=== PATIENT | female | born 1950 | race Caucasian/White ===

== ENCOUNTER 2021-01-26 16:27 | Outpatient (CLI) | payer MEDICARE, SELFPAY ==
--- NOTE | ~2021-01-26 | US_ITS ---
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 Th ere is no intraluminal thrombus identified at the common femoral, femoral, popliteal or posterior tib ial veins. There is compression of these veins. The peroneal veins are not visualized. IMPRESSION: Peroneal veins not visualized; otherwise no evidence of deep venous thrombosis Reviewed, dictated and finalized at [facility]. Reviewed, dictated and finalized at [facility].
[2021-01-26 18:29] LABS: D Dimer 0.85 ug/mL (<0.48)
== END 2021-01-26 16:28 | disposition home or self-care (01) ==
PROVIDERS: PCP Family Medicine Sports Medicine; Visit Provider Family Medicine Sports Medicine
DX: R22.42 Localized swelling, mass and lump, left lower limb (principal)
CPT/HCPCS: 36415; 85380; 93971

== ENCOUNTER 2022-11-08 17:41 | Emergency (ER) | payer MEDICARE, SELFPAY ==
--- NOTE | ~2022-11-08 | XR_ITS ---
EXAMINATION: XR chest 2V 11/08/2022 18:13 INDICATION: Chest pain and shortness of breath PROCEDURE: 2 view chest COMPARISON: No prior studies for comparison. FINDINGS: The lungs are clear. The cardiomediastinal silhouette is within normal limits. There are no pleural effusions. There is no pneumothorax suspected. There is diffuse idiopathic skeletal hyp erostosis (DISH) of the thoracic spine. There are cholecystectomy clips. IMPRESSION: 1: NO ACUTE CARDIOPULMONARY DISEASE. Reviewed, dictated and finalized at location [facility]. [employer] AND CLAIMS AIDE
--- NOTE | 2022-11-08 17:42 | ECG_ITS ---
Measurements Intervals [place] Rate: 68 P: 46 NM: 133 QRS: 3 QRSD: 77 T: 49 QT: 366 QTc: 392 Interpretive Statements SINUS RHYTHM DELAYED PRECORDIAL R/S TRANSITION BORDERLINE ECG NO PREVIOUS ECG AVAILABLE FOR COMPARISON Electronically Signed On 11-08-2022 20:23:48 [employer] by Caleb Schroeder D.O.
[2022-11-08 17:43] VITALS: BP 151/87; PULSE 71; RESP 20; TEMP 36.4; O2SAT 100
[2022-11-08 18:00] LABS: Basophils Absolute Auto 0.1 K/mm3 (0.0-0.1); Basophils Percent Auto 0.8 % (0.2-1.2); Eosinophils Absolute Auto 0.2 K/mm3 (0-0.3); Eosinophils Percent Auto 3.4 % (0-4.4); Hematocrit 40.4 % (37.0-47.0); Hemoglobin 13.1 g/dL (12.0-15.0); Immature Granulocyte Absolute 0.01 K/mm3 (0.00-0.031); Immature Granulocyte Percent A 0.2 % (0-0.5); Lymphocytes Percent Auto 33.8 % (18.3-44.2); Mean Corpuscular HGB Conc 32.4 g/dl (32-36); Mean Corpuscular Hemoglobin 29.8 pg (26-34); Mean Corpuscular Volume 91.8 fl (80-100); Mean Platelet Volume 9.3 fl (7.4-10.4); Monocytes Absolute Auto 0.4 K/mm3 (0.1-0.6); Monocytes Percent Auto 5.9 % (2.6-8.5); Neutrophils Absolute Auto 3.3 K/mm3 (1.3-6.7); Neutrophils Percent Auto 55.9 % (45.5-73.1); Platelet Count Result 224 k/mm3 (150-375); Red Cell Distribution Width 13.7 % (11.5-14.5); White Blood Count 5.9 K/mm3 (4.5-10.0)
[2022-11-08 18:12] LABS: Alanine Aminotransferase 17 U/L (6-35); Albumin Level 4.2 g/dL (3.5-5.1); Alkaline Phosphatase 74 U/L (38-126); Anion Gap 5 mmol/L (8-16); Aspartate Amino Transferase 22 U/L (14-36); Bilirubin,Total 0.5 mg/dL (0.2-1.3); Blood Urea Nitrogen 17 mg/dL (7-17); Calcium 8.2 mg/dL (8.4-10.2); Carbon Dioxide 26 mmol/L (22-30); Chloride 103 mmol/L (98-107); Estimated CRCL calculation 38 ml/min; Estimated Glomerular Filt Rate 44; Glucose 108 mg/dL (65-110); Lipase 99 U/L (23-300); Potassium 4.2 mmol/L (3.4-5.0); Sodium 134 mmol/L (137-145)
[2022-11-08 18:21] LABS: Troponin I < 0.012 ng/mL (0.000-0.034)
[2022-11-08 18:40] LABS: Partial Thromboplastin Time 26.5 SECONDS (22.3-36.8)
[2022-11-08 18:55] LABS: Prothrombin Time 12.9 Seconds (11.1-14.7)
[2022-11-08] MEDS: ASPIRIN 81 MG CHEWABLE TABLET 324 MG PO (20:12)
--- NOTE | 2022-11-08 21:23 | ED.CHESTPAIN ---
HPI - Chest Pain General Chief Complaint: Chest Pain Stated Complaint: Chest pain Time Seen by Provider: 11/08/22 20:02 History of Present Illness HPI narrative: Patient is a 72-year-old female with a history of hyperlipidemia, GERD presenting with chest pain. Patient states that for the last 4 days she has had chest pain in the center of her chest. She is unable to qualify the pain. She denies palpitations, lightheadedness, shortness of breath, leg swelling, abdominal pain, vomiting, diarrhea. Patient states that she has been under a lot of stress lately with one of her children and she thinks that this is causing the pain. She has not taken anything for pain control. Related Data Allergies Allergy/AdvReac Type Severity Reaction Status Date / Time Sulfa (Sulfonamide Allergy Hives Verified 11/08/22 21:06 Antibiotics) Review of Systems Review of Systems: All systems reviewed & are unremarkable except as noted in HPI and below Exam Narrative: GENERAL: Well-appearing, well-nourished, and in no acute distress. HEAD: Normocephalic, atraumatic. EYES: PERRLA and EOMI. ENT: Nares clear, no rhinorrhea or epistaxis. Mucous membranes moist. NECK: Supple. CHEST: Clear to auscultation. No respiratory distress. HEART: Regular rate and rhythm. No murmur heard. Normal peripheral pulses. ABDOMEN: Soft, nontender, nondistended, normal active bowel sounds. EXTREMITIES: Normal range of motion. No edema. SKIN: Warm, dry, no rash. NEURO: No focal deficits. Alert and oriented x3. PSYCH: Normal mood and affect. Course Vital Signs Vital signs: Vital Signs Temperature 97.6 F 11/08/22 17:43 Pulse Rate 71 11/08/22 17:43 Respiratory Rate 20 11/08/22 17:43 Blood Pressure 151/87 H 11/08/22 17:43 Pulse Oximetry 100 11/08/22 17:43 Oxygen Delivery Room Air 11/08/22 17:43 Temperature 97.6 F 11/08/22 17:43 Pulse Rate 86 11/08/22 22:17 Respiratory Rate 16 11/08/22 22:17 Blood Pressure 138/84 11/08/22 22:17 Pulse Oximetry 97 11/08/22 22:17 Oxygen Delivery Room Air 01/26/23 17:43 MDM - Chest Pain MDM Narrative Medical decision making narrative: Patient is a 72-year-old female presenting with several days of chest pain. Patient is a bit hypertensive, otherwise vitals are within normal limits. Patient is well-appearing and in no acute distress. Exam is unremarkable. EKG per my interpretation shows normal sinus rhythm, normal axis and intervals, no acute ischemic changes. Blood work with creatinine of 1.20. Troponin is undetectable. Chest x-ray has no acute abnormalities. Second troponin is still within normal limits. I feel the patient is safe for outpatient follow-up. Patient states that she will call her PCP first thing in the morning. Strict return precautions were given. Patient voiced understanding and is agreeable with plan. Discharged in stable condition. Differential Diagnosis Differential diagnosis: Likely stable angina, atypical chest pain, st elevation myocardial infarction, costochondritis and chest pain Lab Data 11/08/22 17:53 11/08/22 17:53 Labs: Lab Results 11/08/22 11/08/22 11/08/22 Range/Units 17:53 17:53 17:53 WBC 5.9 (4.5-10.0) K/mm3 RBC 4.40 (4.2-5.4) M/mm3 Hgb 13.1 (12.0-15.0) g/dL Hct 40.4 (37.0-47.0) % MCV 91.8 (80-100) fl MCH 29.8 (26-34) pg MCHC 32.4 (32-36) g/dl RDW 13.7 (11.5-14.5) % Plt Count 224 (150-375) k/mm3 MPV 9.3 (7.4-10.4) fl Immature Gran % (Auto) 0.2 (0-0.5) % Neut % (Auto) 55.9 (45.5-73.1) % Lymph % (Auto) 33.8 (18.3-44.2) % [place] % (Auto) 5.9 (2.6-8.5) % Eos % (Auto) 3.4 (0-4.4) % Baso % (Auto) 0.8 (0.2-1.2) % Lymph # (Auto) 2.00 (0.9-3.2) K/mm3 [place] # (Auto) 0.4 (0.1-0.6) K/mm3 Eos # (Auto) 0.2 (0-0.3) K/mm3 Baso # (Auto) 0.1 (0.0-0.1) K/mm3 Abs Immat Gran (auto) 0.01 (0.00-0.031) K/mm3 Absolute Neuts (aut
[2022-11-08] MEDS: KETOROLAC 30 MG/ML VIAL (*BKC) 15 MG IM (21:31)
[2022-11-08 21:46] LABS: Troponin I 0.012 ng/mL (0.000-0.034)
[2022-11-08 22:17] VITALS: BP 138/84; PULSE 86; RESP 16; O2SAT 97
== END 2022-11-08 22:18 | disposition home or self-care (01) ==
PROVIDERS: Emergency Medicine; Emergency Provider Emergency Medicine; PCP Family Medicine Sports Medicine
DX: R07.89 Other chest pain (principal); E78.5 Hyperlipidemia, unspecified; K21.9 Gastro-esophageal reflux disease without esophagitis; R94.31 Abnormal electrocardiogram [ECG] [EKG]
CPT/HCPCS: 36415; 71046; 80053; 83690; 84484; 85025; 85610; 85730; 93005; 96372; 99284; A9270; J1885

== ENCOUNTER 2024-08-20 17:20 | Observation (INO) | payer MEDICARE, SELFPAY ==
[2024-08-20] VITALS (9 sets, daily range): BP systolic 133–179; BP diastolic 45–114; PULSE 58–71; RESP 18–20; TEMP 36.5–37.2; O2SAT 98–100
--- NOTE | ~2024-08-20 | CT_ITS ---
CLINICAL INDICATION: Urinary retention COMPARISON: None. TECHNIQUE: Multiple contiguous axial images of the abdomen and pelvis were performed without the admi nistration of intravenous contrast The dose-length product (DLP) was 648.52 mGy-cm. Automated exposure control and iterative reconstruction technique were employed. FINDINGS/OBSERVATIONS: Visualized lower thorax: The bilateral lung bases are clear. The heart is enlarged, with a small pericardial effusion. Small hiatal hernia is present. Liver: The liver demonstrates homogeneous attenuation and is not enlarged measuring 17 cm in longitudinal di mension. Gallbladder and biliary system: The gallbladder is surgically absent. Pancreas: Limited evaluation of the pancreas secondary to the lack of intravenous contrast. Spleen: The spleen demonstrates homogeneous attenuation and is not enlarged measuring 7 cm in longitudinal di mension. Kidneys: Only a left kidney is visualized. This is likely congenital as no clips are present within the right retroperitoneum to suggest prior n ephrectomy Moderate left-sided hydroureteronephrosis, likely secondary to bladder distention. Adrenal glands: Unremarkable. Gastrointestinal tract: Colonic diverticulosis without surrounding inflammatory change. Fecal stasis within the colon. Appendix: The appendix is of normal caliber (axial series, images 90 through 95). Vasculature: Calcified atherosclerotic disease without aneurysmal dilatation or significant stenosis. Lymph nodes: No pathologically enlarged or morphologically suspicious lymph nodes within the retroperitoneum or at the root of the mesentery. Pelvic structures: Visualization of the deep pelvis is limited secondary to metallic streak artifact from bilateral hip prostheses and hardware. The bladder is significantly distended measuring 12 x 10 x 16 cm (anterior to posterior x medial to l ateral x cranial to caudal dimension) containing nearly 2 L of urine. Body wall and musculoskeletal: Small fat-containing umbilical hernia. No significant degenerative disease within the lower thoracic or lumbosacral spine. IMPRESSION: Significant bladder distention with hydroureteronephrosis in a solitary left kidney. Evaluation of th e deep pelvis is limited secondary to metallic streak artifact from the patient's hip prostheses and hardware. Reviewed, dictated and finalized at location A. ATING ROOM ASSISTANT IMPRESSION: Significant bladder distention with hydroureteronephrosis in a solitary left ki dney. Evaluation of the deep pelvis is limited secondary to metallic streak art ifact from the patient's hip prostheses and hardware.
--- NOTE | 2024-08-20 19:19 | ED.FEMALEGU ---
HPI - Female Genitourinary General Chief complaint: Urogenital-Female Stated complaint: URINARY RETENTION/UTI Time Seen by Provider: 08/20/24 19:03 History of Present Illness HPI Narrative: 74-year-old female presenting to the emergency department for urinary retention. Patient's thinks she has UTI. She has a history of urinary tract infections and kidney infections in the past. She states that she has had 1 day of difficulty urinating and 3 days of constipation. Patient states that she went to her primary care provider's office today with contents urinary retention and they did a bladder scan and had 1000 mL. They did a straight catheterization and sent her into the emergency department for evaluation. Patient states she has had some suprapubic pain and when she tries to go to the bathroom she has to push on her lower abdomen in the suprapubic region to urinate. Never had anything like this happen in the past. She states she only has 1 kidney since . She denies any upper abdominal pain, nausea, vomiting, weakness, back pain, fever, chills. She was otherwise in her normal state of health. Denies any history kidney stones or bladder stones. No burning with urination, states that she cannot defecate and feels constipated as well. Related Data Home Medications Medication Instructions Recorded Confirmed cholestyramine (with sugar) 4 gram ea PO 07/09/23 08/19/23 oral powder pantoprazole 40 mg tablet,delayed 40 mg PO QAM 07/09/23 08/19/23 release pravastatin 40 mg tablet 40 mg PO DAILY 07/09/23 08/19/23 Allergies Allergy/AdvReac Type Severity Reaction Status Date / Time Sulfa (Sulfonamide Allergy Hives Verified 08/19/23 08:54 Antibiotics) shellfish Allergy Mild Rash Uncoded 08/19/23 08:54 Review of Systems Review of Systems: As reviewed above in HPI [facility] Past Medical History Medical History Blood clot in leg Broken femur Broken jaw Diarrhea Diverticulosis GERD (gastroesophageal reflux disease) Gout Hyperlipemia Kidney disease Lumbar degenerative disc disease Surgical History Surgical History History of cholecystectomy History of hip replacement History of nephrectomy Hx of tonsillectomy Knee joint replacement by other means Social History Social History Smoking status: Smoker, status unknown Exam Narrative: GENERAL: [Well-appearing, well-nourished, and in no acute distress.] HEAD: [Normocephalic, atraumatic.] EYES: [PERRLA and EOMI.] ENT: Nares clear, no rhinorrhea or epistaxis. Mucous membranes moist. NECK: Supple. CHEST: [Clear to auscultation. No respiratory distress.] HEART: [Regular rate and rhythm]. No murmur heard. [Normal peripheral pulses.] ABDOMEN: [Soft, nondistended], [nontender], [No rigidity or guarding] EXTREMITIES: Normal range of motion. [No edema] SKIN: Warm, dry, no rash. NEURO: [No focal deficits]. Alert and oriented [x3.] full EHL and FHL strength bilaterally, able to lift both legs off the ground, sensation intact bilaterally, no saddle anesthesia. full range of motion of all extremities PSYCH: [Normal mood and affect.] Course Vital Signs Vital signs: Vital Signs Temperature 36.5 C 08/20/24 17:21 Pulse Rate 60 08/20/24 17:21 Respiratory Rate 18 08/20/24 17:21 Blood Pressure 142/72 H 08/20/24 17:21 Pulse Oximetry 100 08/20/24 17:21 Temperature 36.7 C 08/20/24 20:40 Pulse Rate 64 08/20/24 20:40 Respiratory Rate 20 08/20/24 20:40 Blood Pressure 141/64 H 08/20/24 20:21 Pulse Oximetry 99 08/20/24 20:40 MDM - Female Genitourinary MDM Narrative Medical decision making narrative: 74-year-old female presenting for urinary tension for 1 day. She has also been constipated for 3 days. She states that she has to apply suprapubic pressure to urinate. Has never happened before but states she frequently gets urinary tract infections and kidney infections. No history of kidney stones or bladder stones. She was otherwise in her normal state of health. Denies any fever, chills, weakness. She has an unremarkable neurological examination with full strength and sensation throughout both arms and legs. EHL and FHL with full strength, sensation intact with any saddle anesthesias, no midline back pain. No overlying rashes, she is afebrile here with normal reassuring vital signs. abdomen is soft nontender nondistended. Given patient's urinary complaints a bladder scan was obtained and found to be 500 cc even after the straight catheterization done at her clinic this morning. We will obtain a urinalysis and a CT scan without contrast to assess for any kind of urinary pathology such as a kidney stone, bladder stone or any prolapse organs potentially. CBC, BMP also ordered as well as urinalysis to assess for infection. Patient CT scan was independent reviewed by myself and I do appreciate very distended bladder with hydroureteronephrosis as solitary kidney. She has a very minor leukocytosis 11.2, no anemia. Straight catheterization with urinalysis shows a urinary tract infection. Patient felt improved after release of significant amounts of urine in the catheter collection bag. She was on Rocephin for urinary tract infection and will require admission to the hospital based on her postobstructive acute kidney injury on her CBC and BMP. Concomitant urinary tract infection also needs IV antibiotics at this time. I discussed the case with the hospitalist Dr. Henderson over the phone who accepted the patient to a medical bed at this time. Medical Records Attestation: I reviewed the patient's medical records. Lab Data Attestation: I reviewed the patient's lab results. 08/20/24 20:24 08/20/24 20:24 Labs: Lab Results 08/20/24 08/20/24 Range/Units 20:24 20:48 WBC 11.2 H (4.5-10.0) K/mm3 RBC 3.89 L (4.2-5.4) M/mm3 Hgb 12.0 (12.0-15.0) g/dL Hct 36.4 L (37.0-47.0) % MCV 93.6 (80-100) fl MCH 30.8 (26-34) pg MCHC 33.0 (32-36) g/dl RDW 14.0 (11.5-14.5) % Plt Count 200 (150-375) k/mm3 MPV 9.3 (7.4-10.4) fl Immature Gran % (Auto) 0.4 (0-0.5) % Neut % (Auto) 83.2 H (45.5-73.1) % Lymph % (Auto) 9.8 L (18.3-44.2) % [place] % (Auto) 6.1 (2.6-8.5) % Eos % (Auto) 0.3 (0-4.4) % Baso % (Auto) 0.2 (0.2-1.2) % Lymph # (Auto) 1.10 (0.9-3.2) K/mm3 [place] # (Auto) 0.7 H (0.1-0.6) K/mm3 Eos # (Auto) 0.0 (0-0.3) K/mm3 Baso # (Auto) 0.0 (0.0-0.1) K/mm3 Abs Immat Gran (auto) 0.04 H (0.00-0.031) K/mm3 Absolute Neuts (auto) 9.4 H (1.3-6.7) K/mm3 Absolute Nucleated RBC 0.000 (0.0-0.012) K/mm3 Nucleated RBC % 0.0 (0.0-0.2) % Sodium 139 (137-145) mmol/L Potassium 4.3 (3.4-5.0) mmol/L Chloride 104 (98-107) mmol/L Carbon Dioxide 30 (22-30) mmol/L Anion Gap 5 (4-12) mmol/L BUN 19 H (7-17) mg/dL Creatinine 1.40 H (0.7-1.0) mg/dL Estim Creat Clear Calc Not Reportable Estimated GFR 37 L (59 - ) Glucose 111 H (65-110) mg/dL Calcium 8.9 (8.4-10.2) mg/dL Urine Color Yellow (Yellow) Urine Appearance Cloudy H (Clear) Urine pH 7.5 (5.0-9.0) Ur Specific [place] 1.010 (1.001-1.035) Urine Protein Negative (Negative) mg/dL Urine Glucose (UA) Negative (Negative) mg/dL Urine Ketones Negative (Negative) mg/dL Ur Blood (Man) 2+ H (Negative) Urine Nitrate Positive H (Negative) Urine Bilirubin Negative (Negative) Urine Urobilinogen 1.0 (<2.0) mg/dL Leukocyte Esterase Rfl 2+ H (Negative) LUMA/UL Urine RBC 0-2 (0-2) /hpf Urine WBC 51-100 H (0-3) /hpf Ur Squamous Epith Cells None seen (Few) /hpf Urine Bacteria 4+ /hpf Urine Casts 3-5 Imaging Data Attestation: I personally reviewed and interpreted this imaging study as follows: Radiologist's impression: Impressions Abdomen/Pelvis CT 08/20/24 19:58 IMPRESSION: Significant bladder distention with hydroureteronephrosis in a solitary left kidney. Evaluation of the deep pelvis is limited secondary to metallic streak artifact from the patient's hip prostheses and hardware. Discharge Plan Discharge Clinical Impression: Urinary tract infection, Obstructive uropathy, Acute urinary retention Patient Disposition: Still a Patient Condition: Stable Prescriptions: No Action cholestyramine (with sugar) 4 gram powder PO pravastatin 40 mg tablet 40 mg PO DAILY pantoprazole 40 mg tablet,delayed release (DR/EC) 40 mg PO QAM Follow-up/Referrals: Alejandra,Eliel Mancini MD [Non-Staff] - Time of Disposition: 21:51
[2024-08-20 20:30] LABS: Basophils Percent Auto 0.2 % (0.2-1.2); Eosinophils Percent Auto 0.3 % (0-4.4); Hematocrit 36.4 % (37.0-47.0); Immature Granulocyte Absolute 0.04 K/mm3 (0.00-0.031); Immature Granulocyte Percent A 0.4 % (0-0.5); Lymphocytes Percent Auto 9.8 % (18.3-44.2); Mean Corpuscular Hemoglobin 30.8 pg (26-34); Mean Corpuscular Volume 93.6 fl (80-100); Mean Platelet Volume 9.3 fl (7.4-10.4); Monocytes Absolute Auto 0.7 K/mm3 (0.1-0.6); Monocytes Percent Auto 6.1 % (2.6-8.5); Neutrophils Absolute Auto 9.4 K/mm3 (1.3-6.7); Neutrophils Percent Auto 83.2 % (45.5-73.1); Platelet Count Result 200 k/mm3 (150-375); Red Blood Count 3.89 M/mm3 (4.2-5.4); White Blood Count 11.2 K/mm3 (4.5-10.0)
[2024-08-20 20:39] LABS: Anion Gap 5 mmol/L (4-12); Blood Urea Nitrogen 19 mg/dL (7-17); Calcium 8.9 mg/dL (8.4-10.2); Carbon Dioxide 30 mmol/L (22-30); Chloride 104 mmol/L (98-107); Estimated Glomerular Filt Rate 37; Glucose 111 mg/dL (65-110); Potassium 4.3 mmol/L (3.4-5.0); Sodium 139 mmol/L (137-145)
[2024-08-20 21:33] LABS: Add Urine Microscopic? YES; Appearance Urine Cloudy (Clear); Bacteria Urine 4+ /hpf; Bilirubin Urine Negative (Negative); Blood Urine 2+ (Negative); Color Urine Yellow (Yellow); Glucose Urine UA Negative (Negative); Ketones Urine Negative (Negative); Leukocyte Esterase Ur 2+ LEU/UL (Negative); Nitrate Urine Positive (Negative); Protein Urine Negative (Negative); RBC Urine 0-2 /hpf (0-2); Squamous Epithelial Cell Urine None Seen /hpf (Few); WBC Urine 51-100 /hpf (0-3); pH Urine 7.5 (5.0-9.0)
[2024-08-20] MEDS: cefTRIAXone 2 GM/NS 100 ML 2 GM/100 ML BAG IVPB (22:09)
--- NOTE | 2024-08-20 23:40 | ADMGEN ---
This patient, Megan Sharma, was admitted to [facility] Surg Room 326-01. Patient/family oriented to hospital policies and general routines including ID bracelet, bed and alarms, visiting hours, pain management, procedures, bathroom and other care routines, personal items, smoking policy, room service/diet, and visiting hours. Information on how to activate the Rapid Response Team has been discussed. Patient/Family are encouraged to report perceived risks to care and to ask questions if they do not understand what they are told or what they should do.
[2024-08-21] VITALS (7 sets, daily range): BP systolic 98–140; BP diastolic 51–97; PULSE 59–76; RESP 16–20; TEMP 36.3–37.7; O2SAT 91–100; BMI 35.0
[2024-08-21 08:54] LABS: Basophils Percent Auto 0.2 % (0.2-1.2); Eosinophils Percent Auto 0.3 % (0-4.4); Hematocrit 33.1 % (37.0-47.0); Hemoglobin 10.8 g/dL (12.0-15.0); Immature Granulocyte Absolute 0.04 K/mm3 (0.00-0.031); Immature Granulocyte Percent A 0.3 % (0-0.5); Lymphocytes Absolute Auto 1.59 K/mm3 (0.9-3.2); Lymphocytes Percent Auto 13.8 % (18.3-44.2); Mean Corpuscular HGB Conc 32.6 g/dl (32-36); Mean Corpuscular Hemoglobin 30.5 pg (26-34); Mean Corpuscular Volume 93.5 fl (80-100); Mean Platelet Volume 9.7 fl (7.4-10.4); Monocytes Percent Auto 8.9 % (2.6-8.5); Neutrophils Absolute Auto 8.8 K/mm3 (1.3-6.7); Neutrophils Percent Auto 76.5 % (45.5-73.1); Platelet Count Result 181 k/mm3 (150-375); Red Blood Count 3.54 M/mm3 (4.2-5.4); White Blood Count 11.5 K/mm3 (4.5-10.0)
[2024-08-21 10:33] LABS: Alanine Aminotransferase 21 U/L (6-35); Albumin Level 3.4 g/dL (3.5-5.1); Alkaline Phosphatase 66 U/L (38-126); Anion Gap 4 mmol/L (4-12); Aspartate Amino Transferase 24 U/L (14-36); Bilirubin,Total 1.1 mg/dL (0.2-1.3); Blood Urea Nitrogen 19 mg/dL (7-17); Calcium 8.3 mg/dL (8.4-10.2); Carbon Dioxide 27 mmol/L (22-30); Chloride 102 mmol/L (98-107); Estimated CRCL calculation 34 ml/min; Estimated Glomerular Filt Rate 37; Glucose 108 mg/dL (65-110); Potassium 3.9 mmol/L (3.4-5.0); Sodium 133 mmol/L (137-145)
--- NOTE | 2024-08-21 11:04 | P.HP_ITS ---
H&P: HPI History of Present Illness Date/Time: 08/21/24 11:04 Chief Complaint: Urine retention Narrative: 74yo female with gout, HLD and CKD with solitary kidney here for urine retention. She had a right retinal surgery on 08/18 and did well with this. No Ruggiero placed but was given sedation. She is on Tobramycin/Dexamethasone gtt since the procedure. The following day, she was having trouble voiding. No dysur ia or hematuria. She was having urine incontince with sitting up. Also with low back pain. No new meds except for the eye drops. Never had urine retention in the past. 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 She underwent right nephrectomy at 22yo. Since then, she has occasional UTI with last one about 2 yrs ago. She had nausea and vomiting x1 at home. No fever or chills. She strained to have a BM and this worsened her lower abd pain. She was seen by her PCP and found to have urine retention. Straight cath produced 1liter output. Abd pain did improve. She was sent to the ED for evaluation. In the ED, she was hemodynamically stable. WBC 11K. BUN 19 and Cr 1.4. Last Cr 1.2 in Oct 2022. UA was consistent with UTI. CT A/P showing absent right kidney, moderate left-sided hydroureteronephrosis and significant bladder distention. Ruggiero placed with 700+mL output. She was given Rocephin and admitted for further care. Review of Systems Review of Systems: All systems reviewed & are unremarkable except as noted in HPI and below PMFSH Past Medical History Medical History (Updated 08/21/24 @ 11:53 by Korey Lacey MD) Blood clot in leg associated with femur fx Broken femur left femur Broken jaw Diarrhea Diverticulosis Essential hypertension GERD (gastroesophageal reflux disease) Gout Hyperlipemia Kidney disease Lumbar degenerative disc disease Surgical History Surgical History History of cholecystectomy History of hip replacement History of nephrectomy right Hx of tonsillectomy Knee joint replacement by other means right Family History Family History (Updated 08/20/24 @ 23:52 by Renee Campo RN) Sibling Acute myocardial infarction Mother Cancer Social History Social History (Updated 08/21/24 @ 11:30 by Korey Lacey MD) Social History: Lives with 2 grandsons. A friend of her GS also lives there. No alcohol use. Lifelong nonsmoker. No hx of drug use. Code status - Full Surrogate - 2 grandsons. Smoking status: Unknown if ever smoked Alcohol intake: never Substance use: never Do You Feel Safe in your Home?: Yes Lack of Transportation: No Lack of Food: Never True Current Housing: I Have Housing Concerned About Future Housing: No Difficulty Paying Gas/Electric Bills: No Difficulty Paying for Meds: No Currently Unemployed: No Education: High School Diploma/GED Difficulty w/ Childcare or Family Care: No Spiritual care concerns: No Meds Home Medications and Allergies Home Medications Medication Instructions Recorded Confirmed Type pravastatin 40 mg tablet 40 mg PO DAILY 07/09/23 08/21/24 History carvedilol 3.125 mg tablet 3.125 mg PO BID 08/21/24 08/21/24 History ergocalciferol (vitamin D2) 1,250 1,250 mcg PO WEEKLY 08/21/24 08/21/24 History mcg (50,000 unit) capsule hydrochlorothiazide 25 mg tablet 25 mg PO DAILY 08/21/24 08/21/24 History hydrocodone 10 mg-acetaminophen 1 tablet PO Q4H PRN Back Pain 08/21/24 08/21/24 History 325 mg tablet tobramycin 0.3 %-dexamethasone 0.1 1 drp RIGHT EYE QID 08/21/24 08/21/24 History % eye drops,suspension Allergies Allergy/AdvReac Type Severity Reaction Status Date / Time lisinopril Allergy Rash Verified 08/20/24 22:08 Sulfa (Sulfonamide Allergy Hives Verified 08/20/24 22:08 Antibiotics) shellfish Allergy Mild Rash Uncoded 08/19/23 08:54 Vital Signs Vital Signs - 24 hr 08/20/24 17:21 08/20/24 18:00 08/20/24 18:45 Temperature 97.7 F Pulse Rate 60 61 60 Respiratory Rate 18 18 18 Blood Pressure 142/72 H 146/57 H 146/61 H Pulse Oximetry 100 99 99 Oxygen Delivery 08/20/24 20:21 08/20/24 20:40 08/20/24 21:02 Temperature 98.0 F Pulse Rate 71 64 Respiratory Rate 20 20 Blood Pressure 141/64 H 179/114 H Pulse Oximetry 99 99 98 Oxygen Delivery 08/20/24 21:31 08/20/24 21:47 08/20/24 22:12 Temperature 99.0 F Pulse Rate 58 L Respiratory Rate 20 20 Blood Pressure 133/45 L Pulse Oximetry 98 100 99 Oxygen Delivery 08/21/24 00:27 08/21/24 01:31 08/21/24 06:00 Temperature 99.9 F H 98.1 F Pulse Rate 65 69 Respiratory Rate 18 18 Blood Pressure 140/80 98/77 L Pulse Oximetry 91 95 Oxygen Delivery Room Air 08/21/24 08:30 08/21/24 09:48 Temperature Pulse Rate Respiratory Rate Blood Pressure Pulse Oximetry 96 Oxygen Delivery Room Air Room Air Exam Narrative: AF 98.1 98/77 69 18 96% ra Gen - well appearing female in no acute respiratory distress who is nontoxic- appearing lying semi recumbent in bed HEENT - normocephalic. Atraumatic. Right pupil dilated and poorly reactive. Right sclera injected. Extraocular motions intact. Nares patent. Oropharynx was clear. No oral lesions. Moist mucous membranes. Tongue was midline. Palate janet symmetrically. No facial asymmetry. Poor denition Neck - neck was supple. No dominant adenopathy, thyromegaly or masses. Chest - lungs are clear to auscultation bilaterally. No wheezes or crackles. Breast exam was deferred. CV - heart was regular rate and rhythm. S1-S2. No murmurs gallops or rubs. Abd - abdomen was soft. Nontender. Nondistended. Positive bowel sounds. No organomegaly or masses. - Ruggiero secured draining clear yellow urine Ext - no clubbing, cyanosis or edema. 2+ DP pulses bilaterally. Neuro - patient is alert and oriented x4. Strength is 5/5 in both upper and lower extremities. Cranial nerves 2-12 are intact. Speech is clear. Psych - normal mood and affect. Patient is pleasant and cooperative. Skin - warm and dry. No rashes noted. H&P: Results Labs Labs: Short CBC 08/20/24 08/21/24 Range/Units 20:24 08:40 WBC 11.2 H 11.5 H (4.5-10.0) K/mm3 Hgb 12.0 10.8 L (12.0-15.0) g/dL Hct 36.4 L 33.1 L (37.0-47.0) % Plt Count 200 181 (150-375) k/mm3 BMP 08/20/24 08/21/24 20:24 08:40 Sodium 139 133 L Potassium 4.3 3.9 Chloride 104 102 Carbon Dioxide 30 27 BUN 19 H 19 H Creatinine 1.40 H 1.40 H Glucose 111 H 108 Calcium 8.9 8.3 L Liver Function 08/21/24 Range/Units 08:40 Total Bilirubin 1.1 (0.2-1.3) mg/dL AST 24 (14-36) U/L ALT 21 (6-35) U/L Alkaline Phosphatase 66 (38-126) U/L Albumin 3.4 L (3.5-5.1) g/dL Urine 08/20/24 Range/Units 20:48 Urine Color Yellow (Yellow) Urine Appearance Cloudy H (Clear) Urine pH 7.5 (5.0-9.0) Ur Specific [place] 1.010 (1.001-1.035) Urine Protein Negative (Negative) mg/dL Urine Glucose (UA) Negative (Negative) mg/dL Assessment and Plan Assessment and plan (1) Urinary tract infection: Code(s): N39.0 - Urinary tract infection, site not specified Status: Acute Assessment and Plan: Patient was admitted to medical floor. UA consistent with UTI. Rocephin started after UCx collected. Will resume Rocephin. Follow up on UCx results (2) Acute urinary retention: Code(s): R33.8 - Other retention of urine Status: Acute Assessment and Plan: Patient with acute urine retention with CT showing moderate left-sided hydroureteronephrosis and significant bladder distention. Suspect related to recent surgery and/or UTI. Ruggiero placed. Cr 1.4 and higher from presumed baseline of 1.2 in Oct 2022, but only value listed. Repeat Cr stable at 1.4. Monitor renal function. Will discuss with urology and have patient follow-up for voiding trial in the clinic (3) Kidney disease: Code(s): N28.9 - Disorder of kidney and ureter, unspecified Status: Acute Assessment and Plan: As above (4) Solitary kidney, acquired: Code(s): Z90.5 - Acquired absence of kidney Status: Acute Assessment and Plan: Cr 1.2 in Oct 2022 but the only value listed until this admission. Hold HCTZ Follow (5) Essential hypertension: Code(s): I10 - Essential (primary) hypertension Status: Acute Assessment and Plan: BP soft this morning. She is eating normally so doubt she is dehydrated Will resume Coreg with parameters. Hold HCTZ Consider IV fluids if BP remains soft. Plan DVT prophylaxis - SCDs Code status - Full
[2024-08-21] MEDS: TOBRAMYCIN/DEXAMETHASONE OP 2.5 ML BTL 1 DROP RIGHT EYE ×3 (13:53→20:08)
[2024-08-21] MEDS: carvediloL 3.125 MG TABLET PO (16:43)
[2024-08-21] MEDS: cefTRIAXone 2 GM/NS 100 ML 2 GM/100 ML BAG IVPB (21:48)
[2024-08-22 04:25] VITALS: BP 131/47; PULSE 59; RESP 16; TEMP 36.4; O2SAT 96
[2024-08-22] MEDS: HYDROcodone/acetaminophen (*CRX) 10-325 MG TABLET 1 TAB PO (04:26)
[2024-08-22 06:55] LABS: Basophils Percent Auto 0.2 % (0.2-1.2); Eosinophils Absolute Auto 0.2 K/mm3 (0-0.3); Eosinophils Percent Auto 1.6 % (0-4.4); Hematocrit 34.5 % (37.0-47.0); Hemoglobin 11.2 g/dL (12.0-15.0); Immature Granulocyte Absolute 0.04 K/mm3 (0.00-0.031); Immature Granulocyte Percent A 0.4 % (0-0.5); Lymphocytes Absolute Auto 1.54 K/mm3 (0.9-3.2); Lymphocytes Percent Auto 16.8 % (18.3-44.2); Mean Corpuscular HGB Conc 32.5 g/dl (32-36); Mean Corpuscular Hemoglobin 30.2 pg (26-34); Mean Platelet Volume 9.6 fl (7.4-10.4); Monocytes Absolute Auto 0.6 K/mm3 (0.1-0.6); Monocytes Percent Auto 6.7 % (2.6-8.5); Neutrophils Absolute Auto 6.8 K/mm3 (1.3-6.7); Neutrophils Percent Auto 74.3 % (45.5-73.1); Platelet Count Result 171 k/mm3 (150-375); Red Blood Count 3.71 M/mm3 (4.2-5.4); Red Cell Distribution Width 13.7 % (11.5-14.5); White Blood Count 9.2 K/mm3 (4.5-10.0)
[2024-08-22 07:08] LABS: Alanine Aminotransferase 20 U/L (6-35); Albumin Level 3.4 g/dL (3.5-5.1); Alkaline Phosphatase 62 U/L (38-126); Anion Gap 7 mmol/L (4-12); Aspartate Amino Transferase 17 U/L (14-36); Bilirubin,Total 0.4 mg/dL (0.2-1.3); Blood Urea Nitrogen 23 mg/dL (7-17); Calcium 8.2 mg/dL (8.4-10.2); Carbon Dioxide 26 mmol/L (22-30); Chloride 103 mmol/L (98-107); Estimated CRCL calculation 34 ml/min; Estimated Glomerular Filt Rate 37; Glucose 112 mg/dL (65-110); Phosphorus 3.4 mg/dL (2.5-4.5); Potassium 4.1 mmol/L (3.4-5.0); Sodium 136 mmol/L (137-145)
[2024-08-22] MEDS: PRAVASTATIN SODIUM 20 MG TABLET 40 MG PO (09:12)
[2024-08-22] MEDS: TOBRAMYCIN/DEXAMETHASONE OP 2.5 ML BTL 1 DROP RIGHT EYE ×2 (09:12→12:21)
[2024-08-22 09:13] VITALS: BP 96/40; PULSE 76; RESP 16; O2SAT 100
[2024-08-22] MEDS: CIPROFLOXACIN 250 MG TABLET PO (12:21)
--- NOTE | 2024-08-22 13:27 | PM.DS ---
DS: Admitting Diagnosis Discharge Date 08/22/24 Admitting Diagnosis Urine retention DS: Discharge Diagnosis Discharge Diagnosis (1) Urinary tract infection: Code(s): N39.0 - Urinary tract infection, site not specified Status: Acute (2) Acute urinary retention: Code(s): R33.8 - Other retention of urine Status: Acute (3) Kidney disease: Code(s): N28.9 - Disorder of kidney and ureter, unspecified Status: Acute (4) Solitary kidney, acquired: Code(s): Z90.5 - Acquired absence of kidney Status: Acute (5) Essential hypertension: Code(s): I10 - Essential (primary) hypertension Status: Acute DS: Summary Hospital Course Reason for hospitalization: 74yo female with gout, HLD and CKD with solitary kidney here for urine retention. Please see H&P for details. Hospital Course: Patient was seen by her PCP for lower abdominal pain and found to have urine retention. Straight cath produced 1 liter output. She was sent to the ED for evaluation. In the ED, she was hemodynamically stable. WBC 11K. BUN 19 and Cr 1.4. Only other Cr value of 1.2 in Oct 2022. UA was consistent with UTI. CT A/P showing absent right kidney, moderate left-sided hydroureteronephrosis and significant bladder distention. Ruggiero placed with 700+mL output. She was started on Rocephin. WBC normalized. Hgb dropped to 11.2. Cr remained stable at 1.4. UCx grew ESBL Klebsiella resistent to Rocephin but sensitive to Ciprofloxacin. Abx changed. She overall did well and was able to be discharged home on 08/22/24. Discussed with Urology who will set up an appointment next week. Status at Discharge Cognitive/behavioral status at discharge: stable Time Spent with Patient Time attestation: Total time spent providing and/or coordinating discharge services:34 minutes Time spent: Greater than 30 minutes Exam Narrative: AF 97.6 96/40 76 16 100% ra Gen - NARD Chest - CTA bilaterally, nml RR CV - RRR. S1-S2. Abd - soft. Nontender. Nondistended. Positive bowel sounds. - Ruggiero secured draining clear yellow urine Ext - no pedal edema. Psych - normal mood and affect. Skin - warm and dry. DS: Data Data Completed and Pending Labs on day of discharge: Labs from last 24 hours 08/22/24 06:37 WBC 9.2 RBC 3.71 L Hgb 11.2 L Hct 34.5 L MCV 93.0 MCH 30.2 MCHC 32.5 RDW 13.7 Plt Count 171 MPV 9.6 Immature Gran % (Auto) 0.4 Neut % (Auto) 74.3 H Lymph % (Auto) 16.8 L [place] % (Auto) 6.7 Eos % (Auto) 1.6 Baso % (Auto) 0.2 Lymph # (Auto) 1.54 [place] # (Auto) 0.6 Eos # (Auto) 0.2 Baso # (Auto) 0.0 Abs Immat Gran (auto) 0.04 H Absolute Neuts (auto) 6.8 H Absolute Nucleated RBC 0.000 Nucleated RBC % 0.0 Sodium 136 L Potassium 4.1 Chloride 103 Carbon Dioxide 26 Anion Gap 7 BUN 23 H Creatinine 1.40 H Estim Creat Clear Calc 34 Estimated GFR 37 L Glucose 112 H Calcium 8.2 L Phosphorus 3.4 Total Bilirubin 0.4 AST 17 ALT 20 Alkaline Phosphatase 62 Total Protein 6.0 L Albumin 3.4 L Discharge Plan Discharge Attending physician on discharge: Korey Lacey Discharging Clinician: Korey Lacey Anticipated Discharge Date/Time: 08/22/24 13:42 Patient Disposition: Home, Self-Care Activity: as tolerated Diet: regular Discharge Instructions: You are going home with a urinary catheter. You will be trained on how to use a smaller 'leg' bag during the day and the larger bag at night. Please be cautious that you do not trip over the catheter. Please complete your antibiotic course even if you are starting to feel well. Take precautions to avoid falls. Rise slowly from a lying or sitting position. Pause before standing or walking. Contact your doctor or call 911 and come to the Emergency Room if you have lightheadedness with standing or other worrisome symptoms. Avoid NSAIDs (ibuprofen, naproxen, Aleve). Tylenol is safe to take. Follow-up with your primary care provider in 1-2 weeks. Please call for appointment. Follow-up with Urology next week. They should call you for an appointment. Call then if you haven't heard from them by Saturday. Thank you for using [facility] for your health care needs. Patient Instructions: Antibiotic Form, Heart Failure (GEN) Stand Alone Forms: General Discharge Information Follow-up/Referrals: Shaen Martines MD [Physician] - Call for Appointment UNKNOWN,DOCTOR [Primary Care Provider] - Call for Appointment Discharge Medications: New ciprofloxacin HCl 250 mg Tablet 250 mg PO Q12HR Qty: 13 0RF Continued pravastatin 40 mg tablet 40 mg PO DAILY hydrocodone-acetaminophen 10-325 mg tablet 1 tablet PO Q4H PRN (Reason: Back Pain) carvedilol 3.125 mg tablet 3.125 mg PO BID tobramycin-dexamethasone 0.3-0.1 % drops,suspension 1 drp RIGHT EYE QID ergocalciferol (vitamin D2) 1,250 mcg (50,000 unit) capsule 1,250 mcg PO WEEKLY Held hydrochlorothiazide 25 mg tablet 25 mg PO DAILY Hold Instructions: HOLD - resume if okay with your doctor Date of admission: 08/20/24 21:47 Primary Care Provider: UNKNOWN,DOCTOR Admitting Provider: Ronny Henderson V. Attending physician on admission: Ronny Henderson V. Condition: Stable Hospitalist MIPS Heart Failure (Exclusion) Patient has history of Heart Transplant or Left Ventricular Assistive Device?: No IF YES, STOP HERE Heart Failure (Qualifier) Patient has current or prior documentation of LVEF less than or equal to 40%, or mod/servere depressed LVSF?: No IF NO, STOP HERE
[2024-08-22 14:00] VITALS: BP 110/60; PULSE 58; RESP 16; TEMP 36.4; O2SAT 100
== END 2024-08-22 15:30 | disposition home or self-care (01) ==
LOC: ANHED 21:51 → ANH3MEDSUR 08-21 00:21
PROVIDERS: Admitting Provider Internal Medicine; Emergency Provider Student in an Organized Health Care Education/Training Program; Visit Provider Internal Medicine
DX: N13.6 Pyonephrosis (principal); R33.8 Other retention of urine; B96.89 Other specified bacterial agents as the cause of diseases classified elsewhere; Z16.12 Extended spectrum beta lactamase (ESBL) resistance; I12.9 Hypertensive chronic kidney disease with stage 1 through stage 4 chronic kidney disease, or unspecified chronic kidney disease; N18.9 Chronic kidney disease, unspecified; Z90.5 Acquired absence of kidney; E78.5 Hyperlipidemia, unspecified; K21.9 Gastro-esophageal reflux disease without esophagitis; M10.9 Gout, unspecified; M51.369 Other intervertebral disc degeneration, lumbar region without mention of lumbar back pain or lower extremity pain; Z79.899 Other long term (current) drug therapy; Z87.440 Personal history of urinary (tract) infections; Z96.649 Presence of unspecified artificial hip joint; Z96.659 Presence of unspecified artificial knee joint; Z90.49 Acquired absence of other specified parts of digestive tract
CPT/HCPCS: 36415; 74176; 80048; 80053; 81001; 84100; 85025; 87077; 87086; 87186; 96365; 96376; 99285; A9270; G0378; J0696